=== PATIENT | male | born 1995 | race American Indian/Alaskan Native ===

== ENCOUNTER 2017-02-11 00:49 | Emergency (ER) | payer OTHER ==
[2017-02-11 01:20] VITALS: BP 155/93; PULSE 88; RESP 16; TEMP 98.9; O2SAT 99
[2017-02-11] MEDS ORDERED: TDAP Vaccine 0.5 mL Syr IM ONE (01:38)
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
== END 2017-02-11 02:07 | disposition home or self-care (01) ==
LOC: H.ER 00:49
DX: S00.81XA Abrasion of other part of head, initial encounter (principal); W22.8XXA Striking against or struck by other objects, initial encounter; Y92.89 Other specified places as the place of occurrence of the external cause